=== PATIENT | male | born 2000 | race Caucasian/White ===

== ENCOUNTER 2019-08-27 18:27 | Emergency (ER) | payer OTHER, SELFPAY ==
[2019-08-27 18:39] VITALS: BP 131/59; PULSE 88; RESP 18; TEMP 37; O2SAT 99
[2019-08-27 18:58] LABS: Hematocrit 38.5 % (42.0-52.0); Hemoglobin 13.5 g/dL (14.0-18.0); Immature Platelet Fraction Pct 1.9 % (0.9-11.2); Mean Corpuscular HGB Conc 35.1 g/dl (32-36); Mean Corpuscular Hemoglobin 31.4 pg (26-34); Mean Corpuscular Volume 89.5 fl (80-100); Mean Platelet Volume 9.1 fl (7.4-10.4); Platelet Count Result 143 k/mm3 (150-375); Red Cell Distribution Width 12.2 % (11.5-14.5); White Blood Count 3.9 K/mm3 (4.5-10.0)
[2019-08-27 19:07] LABS: Alanine Aminotransferase 30 U/L (4-50); Albumin Level 4.2 g/dL (3.7-5.6); Alkaline Phosphatase 67 U/L (58-237); Aspartate Amino Transferase 49 U/L (17-59); Bilirubin,Total 5.8 mg/dL (0.2-1.3); Blood Urea Nitrogen 9 mg/dL (8-21); Calcium 8.4 mg/dL (8.9-10.7); Carbon Dioxide 29 mmol/L (22-30); Chloride 101 mmol/L (98-107); Estimated CRCL calculation 146 ml/min; Estimated Glomerular Filt Rate > 60; Glucose 142 mg/dL (75-110); Sodium 136 mmol/L (134-143)
[2019-08-27 19:12] LABS: Monoscreen Positive (Negative); Negative Monotest Control Negative (Negative); Positive Monotest Control Positive (Positive)
[2019-08-27 19:16] LABS: Atypical Lymphocytes Present; Band Neutrophils Percent 8 % (0-6); Eosinophils Absolute Manual 0.03 K/mm3 (0.02-0.5); Eosinophils Percent Manual 1 % (0-4); Monocytes Absolute Manual 0.35 K/mm3 (0.1-0.90); Monocytes Percent Manual 9 % (3-9); Neutrophils Percent Manual 51 % (46-73); Total Cells Counted 100
[2019-08-27 19:33] VITALS: BP 110/69; PULSE 79; RESP 15; O2SAT 99
--- NOTE | 2019-08-27 20:20 | ED.GENADULT ---
HPI - General Adult General Chief complaint: Unspecified Stated complaint: NECK PAIN, [place]EN GL[place]S Time Seen by Provider: 08/27/19 19:42 Source: patient and family Mode of arrival: ambulatory Limitations: no limitations History of Present Illness HPI narrative: Patient is a 18-year-old male who presents to the emergency department for evaluation of a 2-day history of worsening edema on the right side of his neck, neck tenderness, low-grade fever, and jaundice. Patient's mother states that she noticed the right side of his neck was more swollen, patient had yellow discoloration of the skin and eyes that began 2 days ago. Patient reports feeling slightly more fatigued than normal, denies any nausea, vomiting or abdominal pain. Patient has had low-grade fever, ranging between 99 Fahrenheit to 100 Fahrenheit. No sick contacts at home. No rashes or diarrhea. Patient has no history of autoimmune diseases or liver problems. Related Data Home Medications Medication Instructions Recorded Confirmed No Home Medications 08/27/19 08/27/19 Allergies Allergy/AdvReac Type Severity Reaction Status Date / Time Penicillins AdvReac Unknown Verified 08/27/19 19:47 Review of Systems Review of Systems: Narrative: CONSTITUTIONAL: Reports mild fever, denies chills or sweats EYES: Denies visual changes, redness, or discharge. ENT: Denies rhinorrhea, congestion, sore throat, or otalgia. CARDIOVASCULAR: Denies chest pain, palpitations, or edema. RESPIRATORY: Denies cough or dyspnea. GASTROINTESTINAL: Denies abdominal pain, nausea, vomiting, or diarrhea. GENITOURINARY: Denies dysuria or hematuria. SKIN: Denies rash or itching. Reports jaundice. MUSCULOSKELETAL: Denies back pain, joint pain, or myalgia. NEUROLOGIC: Denies headache, numbness, or weakness. [facility] Past Medical History Medical History (Updated 08/27/19 @ 21:15 by Lisa Lou MD) No pertinent past medical history Surgical History Surgical History (Updated 08/27/19 @ 20:22 by Lisa Lou MD) No pertinent past surgical history Social History Social History (Updated 08/27/19 @ 20:23 by Lisa Lou MD) Smoking status: Never smoker Alcohol intake: never Substance use: never Living arrangements: with family Gender identity (if verbalized by the patient): Male Exam Narrative: Exam Narrative: GENERAL: Awake, alert, conversant HEAD: Normocephalic, atraumatic. EYES: PERRLA and EOMI. scleral icterus present bilaterally. ENT: Nares clear, no rhinorrhea or epistaxis. Mucous membranes moist. NECK: Supple. CHEST: No respiratory distress, breathing even and non labored HEART: Regular rate, sinus rhythm ABDOMEN:Non distended, non tender, no splenomegaly, no hepatomegaly EXTREMITIES: Normal range of motion. No edema. SKIN: Warm, dry, no rash. No petechiae. Jaundice present. NEURO:No focal deficits. Alert and oriented x3 Course Course Emergency Course: Patient presented for evaluation of jaundice. At the time of initial assessment, ABCs are intact, vital signs are stable. Patient without abdominal pain, no rashes. Patient does have scleral icterus and jaundice. Laboratory results notable for elevated total bilirubin, no transaminitis. Very mild pancytopenia, very mild anemia, very mild thrombocytopenia, none of which would qualify for transfusion. Patient has only elevation in indirect bilirubin. This is likely all consistent with viral process. Patient has a positive mono test here at this facility today. Perhaps this has caused [place] syndrome in this patient. He has no diagnoses of acquired hyperbilirubinemia syndromes in the past. Spoke with the on-call personal property assessor for the doctor the patient follows with, they will do close follow-up per the patient as well as repeat laboratory results. Patient was advised to continue symptomatic care, hydration, and to return to the emergency department if he if he should have inability to tolerate ora
[2019-08-27 20:38] LABS: Add Urine Microscopic? YES; Appearance Urine Clear (Clear); Bacteria Urine Trace /hpf; Bilirubin Urine 1+ (Negative); Blood Urine Negative (Negative); Color Urine Amber (Yellow); Glucose Urine UA Negative (Negative); Ketones Urine Negative (Negative); Leukocyte Esterase Ur Negative LEU/UL (Negative); Mucus Urine Moderate /lpf; Nitrate Urine Negative (Negative); Protein Urine 2+ mg/dL (Negative); WBC Urine 0-3 /hpf
[2019-08-27 20:41] LABS: Specific Grav Ur 1.033 (1.001-1.035)
[2019-08-27 20:54] LABS: Bilirubin Indirect 5.4 mg/dL (0-1.1)
[2019-08-27 21:26] VITALS: BP 131/81; PULSE 71; RESP 14; TEMP 36.6; O2SAT 100
== END 2019-08-27 21:29 | disposition home or self-care (01) ==
PROVIDERS: Emergency Provider Emergency Medicine
DX: B27.90 Infectious mononucleosis, unspecified without complication (principal); R17 Unspecified jaundice
CPT/HCPCS: 36415; 80053; 81001; 82248; 85025; 85055; 86308; 99283

== ENCOUNTER 2021-09-21 14:28 | Emergency (ER) | payer OTHER, SELFPAY ==
--- NOTE | ~2021-09-21 | XR_ITS ---
EXAMINATION: XR elbow LT min 3V DATE: 09/21/2021 14:52 INDICATION: Left elbow pain and swelling. Hit with baseball 3 weeks ago. TECHNIQUE: 4 views of left elbow on 5 radiographs were obtained. COMPARISON: None. FINDINGS: Bone alignment is normal. No fracture. Joint spaces are well maintained. No elbow joint eff usion. IMPRESSION: 1. No fracture. Reviewed, dictated and finalized at location A. IMPRESSION: 1. No fracture.
[2021-09-21 14:34] VITALS: BP 145/80; PULSE 66; RESP 16; TEMP 36.4; O2SAT 100
--- NOTE | 2021-09-21 14:56 | ED.UPPEXIN ---
HPI - Extremity Injury (Upper) General Chief Complaint: Extremity Injury, Upper Stated Complaint: left elbow injury Time Seen by Provider: 09/21/21 14:57 Source: patient Mode of arrival: ambulatory Limitations: no limitations History of Present Illness HPI narrative: 20-year-old male presented for complaint of left upper arm pain and swelling with sudden onset yesterday. He states he woke with swelling and pain. He endorses decreased range of motion to the elbow, cannot fully flex due to pain. States the pain radiates down to the arm to fifth digit. Endorses 3 weeks ago he was hit by baseball, however he states that injury had resolved. He has not played baseball in 1 week. No other injury. He has not been lifting pushing or pulling. Denies numbness, tingling, or weakness of the upper extremity. Pt is right- hand dominant. Related Data Allergies Allergy/AdvReac Type Severity Reaction Status Date / Time Penicillins AdvReac Unknown Verified 09/21/21 14:36 Review of Systems Review of Systems: CONSTITUTIONAL: Denies body aches, fever, chills CARDIOVASCULAR: Denies chest pain, palpitations, or edema. RESPIRATORY: Denies cough or dyspnea. SKIN: Denies rash, bruising or wounds. MUSCULOSKELETAL: reports left arm pain NEUROLOGIC: Denies headache, numbness, tingling, or weakness. PSYCH: Denies depression or anxiety. All systems reviewed & are unremarkable except as noted in HPI and below PMFSH Past Medical History Medical History No pertinent past medical history Surgical History Surgical History No pertinent past surgical history Social History Social History Smoking status: Never smoker Alcohol intake: never Substance use: never Gender identity (if verbalized by the patient): Male Comments At time of signature, I have reviewed and agree with nursing past medical, surgical, social and family history unless otherwise noted. Please see nursing chart for further information. There is no relevant family history pertinent to the presenting complaint Exam Narrative: GENERAL: Well-appearing CHEST: Speaks in full sentences. No respiratory distress. HEART: Regular rate and rhythm. Normal and equal peripheral pulses. EXTREMITIES: Moderate swelling about 3-4cm proximal to left elbow, minimally tender with palpation, small superficial bruising to lateral aspect of tricep, no hematoma/ecchymosis. Left elbow with decreased ROM cannot flex more than 30 degrees due to pain, can tolerate passive ROM approx 45 degrees, he can tolerate full extension. Left hand has normal strength and sensation and movement to fingers; pulses palpable and equal bilaterally, bilateral hand garnett feeder strong and equal; skin warm, dry, pink. Capillary refill less than 3 seconds. Full ROM to left shoulder and wrist. SKIN: Warm, dry, no rash. NEURO: No focal deficits Course Course Emergency Course: Patient is aware of diagnosis, understands and agrees to treatment plan. Anticipatory guidance given. Patient agrees to follow-up as directed and is aware of reasons to seek care at the emergency department. Portions of this record may have been created with voice recognition software Level of Care: Express Care Visit Vital Signs Vital signs: Vital Signs Temperature 97.5 F L 09/21/21 14:34 Pulse Rate 66 09/21/21 14:34 Respiratory Rate 16 09/21/21 14:34 Blood Pressure 145/80 H 09/21/21 14:34 Pulse Oximetry 100 09/21/21 14:34 Oxygen Delivery Room Air 09/21/21 14:34 Temperature 97.5 F L 09/21/21 14:34 Pulse Rate 66 09/21/21 14:34 Respiratory Rate 16 09/21/21 14:34 Blood Pressure 145/80 H 09/21/21 14:34 Pulse Oximetry 100 09/21/21 14:34 Oxygen Delivery Room Air 09/21/21 14:34 Reviewed MDM - Extremity Injury (Upper) MDM Narrative Medical
--- NOTE | 2021-09-21 16:20 | PC.NURSE ---
1530 Patient is unable to bend arm to properly apply sling, attempt to place on properly has patient increasing complaints of pain. Sling removed and provider notified.
== END 2021-09-21 15:30 | disposition home or self-care (01) ==
PROVIDERS: Emergency Provider Nurse Practitioner Family; PCP Pediatrics
DX: M77.8 Other enthesopathies, not elsewhere classified (principal)
CPT/HCPCS: 73080; 99213; A4565; G0463